=== PATIENT | female | born 1980 | race Caucasian/White ===

== ENCOUNTER 2025-01-15 20:24 | Inpatient (IN) ==
[2025-01-15] MEDS: fentaNYL citrate PF 100 MCG/2 ML VIAL IV PRN (20:29)
[2025-01-15] MEDS: fentaNYL citrate PF 100 MCG/2 ML VIAL ONE (20:29)
--- NOTE | 2025-01-15 20:40 | Emergency Department Note ---
Impression & Plan Left tibial fracture, Closed left fibular fracture ED Provider Note NAME: VERONICA BEAVERS AGE: 44 SEX: F : 1980 ARRIVES VIA: Ambulance INFORMANT: Patient, EMS ED PROVIDER(S): Raj Rodriguez DO CHIEF COMPLAINT: Leg injury HPI: The patient is a 44-year-old female who presented to the emergency department for an evaluation after an injury to her left leg. The patient fell when she was standing on the bed of a truck that was not moving. She landed onto her left leg. She was unable to bear weight. She arrived via ALS. She received fentanyl prior to arrival. There was no other reported injury. The patient denies having any back pain or head injury. ROS: See above HPI for pertinent positives & negatives. A total of 10 systems reviewed and were otherwise negative. PAST MEDICAL HISTORY: See Below PAST SURGICAL HISTORY: See Below FAMILY HISTORY: See Below SOCIAL HISTORY: See Below HOME MEDICATIONS: See Below ALLERGIES: See Below VITALS: See Below PHYSICAL EXAMINATION: GENERAL: The patient is awake and alert. The patient is very anxious and appears to be uncomfortable. EYES: The conjunctivae are clear. The pupils are round and reactive. EARS, NOSE, MOUTH AND THROAT: The nose is without any evidence of any deformity. NECK: The neck is nontender and supple. RESPIRATORY: Normal respiratory effort is noted there is no evidence of wheezing rhonchi or rales CARDIOVASCULAR: Regular rate and rhythm noted there no murmurs rubs or gallops normal S1 normal S2. GASTROINTESTINAL: The abdomen is soft. Abdomen is nontender. BACK: No midline tenderness or or step-off noted range of motion in flexion extension as well as rotation no signs of muscle spasm noted MUSCULOSKELETAL/EXTREMITIES: There is deformity noted to the left lower leg. Pulses are symmetric in both feet. Skin was warm and dry. There is no palpable tenderness over the left hip or the left ankle. SKIN: There is no obvious evidence of any rash. There are no petechiae, pallor or cyanosis noted. NEUROLOGIC: Patient is awake alert and oriented x3 MEDICAL DECISION MAKING: The patient is a 44-year-old female who presented to the emergency department after a fall. The patient fell off the back of a nonmoving truck. The patient injured her left leg. She appeared to have signs of deformity on physical exam. She was placed into a splint. Further laboratory and radiographic studies were obtained. I discussed the patient's condition with her. I discussed her condition with the on-call orthopedic physician as well as the on-call [facility] hospitalist. They agreed to evaluate the patient in the emergency department for further management and disposition. Patient was treated with multiple doses of IV pain medication. She was improved. Triage Nursing notes reviewed. Prior medical records reviewed Vital Signs: reviewed and remarkable for no significant abnormalities Differential diagnosis: Fracture, subluxation, dislocation, contusion, ligamentous injury, neurovascular, compartment syndrome, rhabdomyolysis, as well as other pathologies. ER treatment provided: See below Diagnostics interpreted by me: ECG: EKG was obtained in the emergency department. My interpretation is paced rhythm at 62 bpm. No PVCs were noted. No [place] beats were noted. Cardiac Monitoring: An order was placed for continuous cardiac monitoring. The monitor shows a rate of 60 bpm with sinus rhythm. Laboratory studies: As stated above and show below. Imaging studies: See below. Radiographic imaging was reviewed by myself Consultation(s): I discussed this case with Dr. Platt who is on-call for orthopedics. I discussed this case with Dr. Sosa [facility]. Past Med/Surg History Problem List (Updated 01/15/25 @ 23:51 by Raj Rodriguez DO) Closed left fibular fracture (Acute) Left tibial fracture (Acute) Medical History (Updated 01/15/25 @ 23:51 by Raj Rodriguez DO) Hypothyroid History of pacemaker Social History Smoking Status: Never smoker Preferred Language: Kenyan Feels Safe at Home: Yes Allergies Allergies Allergy/AdvReac Type Severity Reaction Status Date / Time No Known Allergies Allergy Unverified 01/15/25 21:13 Home Meds Home Medications Medication Instructions Recorded Confirmed aspirin 81 mg tablet,delayed 81 mg PO HS 01/15/25 01/15/25 release levothyroxine 125 mcg tablet 125 mcg PO QAM 01/15/25 01/15/25 (Synthroid) metoprolol succinate 25 mg 25 mg PO HS 01/15/25 01/15/25 tablet,extended release 24 hr spironolactone 100 mg tablet 100 mg PO BID 01/15/25 01/15/25 Results & Data (ED) Vital Signs Vital Signs - 24 hr 01/15/25 20:26 01/15/25 20:26 01/15/25 20:26 Temperature 36.6 C 36.6 C 36.6 C Temperature Source Oral Oral Pulse Rate 60 60 Pulse Rate [Apical] 60 Respiratory Rate 18 18 18 Respiratory Effort / Characteristics Non-Labored Non-Labored Respiratory Depth Normal Normal Respiratory Pattern Regular Regular Blood Pressure 145/83 H 145/83 H Blood Pressure [Right Arm] 145/83 H Blood Pressure Mean 103 Blood Pressure Mean [Right Arm] 103 Pulse Oximetry 100 100 100 Oxygen Delivery Method Room Air Room Air Room Air Oxygen Flow Rate 0 Sepsis Recent Fever Within 48 Hours No Sepsis New/Unexplained Change in Mental Status N/A Sepsis Action Taken by Nursing No Action Required 01/15/25 20:26 01/15/25 20:26 01/15/25 20:33 Temperature Temperature Source Pulse Rate 60 60 Pulse Rate [Apical] Respiratory Rate 18 18 Respiratory Effort / Characteristics Respiratory Depth Respiratory Pattern Blood Pressure 142/77 H Blood Pressure [Right Arm] Blood Pressure Mean 116 Blood Pressure Mean [Right Arm] Pulse Oximetry 100 100 99 Oxygen Delivery Method Room Air Room Air Room Air Oxygen Flow Rate Sepsis Recent Fever Within 48 Hours Sepsis New/Unexplained Change in Mental Status Sepsis Action Taken by Nursing 01/15/25 20:37 01/15/25 20:40 01/15/25 20:50 Temperature Temperature Source Pulse Rate 62 60 60 Pulse Rate [Apical] Respiratory Rate 12 14 Respiratory Effort / Characteristics Respiratory Depth Respiratory Pattern Blood Pressure 149/88 H 146/86 H Blood Pressure [Right Arm] Blood Pressure Mean 120 118 Blood Pressure Mean [Right Arm] Pulse Oximetry 99 93 Oxygen Delivery Method Room Air Room Air Oxygen Flow Rate Sepsis Recent Fever Within 48 Hours Sepsis New/Unexplained Change in Mental Status Sepsis Action Taken by Nursing 01/15/25 21:00 01/15/25 21:15 01/15/25 22:00 Temperature 36.7 C 36.7 C Temperature Source Oral Oral Pulse Rate 60 Pulse Rate [Apical] 60 60 Respiratory Rate 16 14 16 Respiratory Effort / Characteristics Non-Labored Non-Labored Respiratory Depth Normal Normal Respiratory Pattern Regular Regular Blood Pressure 124/70 Blood Pressure [Right Arm] 116/73 107/66 Blood Pressure Mean 82 Blood Pressure Mean [Right Arm] 87 79 Pulse Oximetry 98 97 96 Oxygen Delivery Method Room Air Room Air Room Air Oxygen Flow Rate Sepsis Recent Fever Within 48 Hours Sepsis New/Unexplained Change in Mental Status Sepsis Action Taken by Nursing 01/15/25 23:02 Temperature 36.8 C Temperature Source Oral Pulse Rate Pulse Rate [Apical] 60 Respiratory Rate 22 Respiratory Effort / Characteristics Respiratory Depth Respiratory Pattern Blood Pressure Blood Pressure [Right Arm] 118/60 Blood Pressure Mean Blood Pressure Mean [Right Arm] 79 Pulse Oximetry 95 Oxygen Delivery Method Room Air Oxygen Flow Rate Sepsis Recent Fever Within 48 Hours Sepsis New/Unexplained Change in Mental Status Sepsis Action Taken by [facility] Medications Current Medication List: was personally reviewed by me Laboratory Data Attestation: I reviewed the patient's lab results. 01/15/25 20:30 01/15/25 20:30 Lab Results 01/15/25 Range/Units 20:30 WBC 9.94 (4.8-10.8) K/ul RBC 4.25 (4.20-5.40) M/uL Hgb 12.8 (12.0-16.0) g/dl Hct 37.7 (37.0-47.0) % MCV 88.7 (80.0-100.0) fL MCH 30.1 (25.0-34.0) pg MCHC 34.0 (32.0-36.0) g/dL RDW Std Deviation 42.8 (36.4-46.3) fL RDW Coeff of Linda 13.1 (11.5-14.5) % Plt Count 251 (130-400) K/uL MPV 9.4 (9.4-12.4) fL Immature Gran % (Auto) 0.2 % Neut % (Auto) 64.3 % Lymph % (Auto) 20.1 % [place] % (Auto) 11.6 % Eos % (Auto) 3.3 % Baso % (Auto) 0.5 % Neut # (Auto) 6.39 (1.40-6.50) K/uL Lymph # (Auto) 2.00 (1.20-3.40) K/uL [place] # (Auto) 1.15 H (0.11-0.59) K/uL Eos # (Auto) 0.33 (0.00-0.50) K/uL Baso # (Auto) 0.05 (0.00-0.20) K/uL Immature Gran # (Auto) 0.02 (0.01-0.20) K/uL PT 10.3 (9.0-12.0) Seconds INR 0.9 (0.9-1.1) Sodium 136 (136-145) mmol/L Potassium 4.0 (3.5-5.1) mmol/L Chloride 103 (98-107) mmol/L Carbon Dioxide 29 (21-32) mmol/L Anion Gap 4 (3-11) BUN 14 (6-23) mg/dl Creatinine 0.60 (0.6-1.2) mg/dl Est Cr Clr Drug Dosing Not Reportable eGFR 114.86 BUN/Creatinine Ratio 23.3 H (10-20) Glucose 118 H (70-99(Fasting)) mg/dl Calcium 9.4 (8.6-10.3) mg/dl Magnesium 1.8 (1.7-2.4) mg/dl Total Bilirubin 0.2 (0.2-1.0) mg/dl AST 22 (13-39) U/L ALT 15 (7-52) U/L Alkaline Phosphatase 43 (34-104) U/L Total Protein 7.3 (6.0-8.3) gm/dl Albumin 4.5 (3.4-5.0) gm/dl Globulin 2.8 (2.5-4.0) gm/dl Albumin/Globulin Ratio 1.6 (0.9-2) Lipase 52 (11-82) U/L HCG, Qual Negative (Negative) Administered Medications Sodium Chloride (Nss) 1,000 mls @ 50 mls/hr IV .Q20H ONE Stop: 01/16/25 19:59 Last Admin: 01/15/25 23:14 Dose: 50 mls/hr Documented By: CTK Morphine Sulfate (Morphine Sulfate 2 Mg/Ml Carp) 2 mg IV Q3H PRN PRN Reason: Pain Stop: 01/29/25 22:59 Last Admin: 01/15/25 23:36 Dose: 2 mg Documented By: CTK Discontinued Medications Fentanyl Citrate (Fentanyl Citrate Pf 100 Mcg/2 Ml Vial) Confirm Administered Dose 100 mcg .ROUTE .STK-MED ONE Stop: 01/15/25 20:27 Last Admin: 01/15/25 20:29 Dose: Not Given Documented By: RALEIGH Fentanyl Citrate (Fentanyl Citrate Pf 100 Mcg/2 Ml Vial) 100 mcg IV Q15M PRN PRN Reason: Pain Stop: 01/29/25 20:24 Last Admin: 01/15/25 21:00 Dose: 100 mcg Documented By: Admin: 01/15/25 20:29 Dose: 100 mcg Documented By: RALEIGH Hydromorphone HCl (Hydromorphone Inj 0.5 Mg/0.5 Ml Syr) 0.5 mg IV Q15M PRN PRN Reason: Pain Stop: 01/29/25 21:32 Last Admin: 01/15/25 22:59 Dose: 0.5 mg Documented By: Admin: 01/15/25 21:41 Dose: 0.5 mg Documented By: RALEIGH Ondansetron HCl (Ondansetron Inj 2 Mg/Ml 2 Ml Vial) 4 mg IV NOW STA Stop: 01/15/25 21:03 Last Admin: 01/15/25 21:08 Dose: 4 mg Documented By: RALEIGH Imaging Data Attestation: I personally reviewed and interpreted this imaging study as follows: My Impression: 1 view chest x-ray was obtained in the emergency department. My interpretation is no free air or definite infiltrate, final report pending. X-ray of the left tib-fib was obtained in the emergency department. My interpretation is spiral fracture of the distal tibial shaft with a spiral fracture of the proximal fibular shaft, final report pending. Discharge Plan Visit Data Chief Complaint: Trauma Stated Complaint: Tib/Fib Fracture, Fall ED Provider: Raj Rodriguez Discharge Problem: Left tibial fracture, Closed left fibular fracture Patient Disposition: Being Evaluated by Hospitalist Forms Stand Alone Forms: My [facility] Prescriptions Prescriptions: No Action aspirin [Aspirin Low-Strength] 81 mg Tablet,Delayed Release (Dr/Ec) 81 mg PO HS levothyroxine [Synthroid] 125 mcg Tablet 125 mcg PO QAM spironolactone 100 mg Tablet 100 mg PO BID metoprolol succinate 25 mg Tablet Extended Release 24 Hr 25 mg PO HS Referrals Referrals: PCP,NO [Physician] - Discharge Problem: Left tibial fracture Qualifiers: Encounter type: initial encounter Tibia location: shaft Fracture type: closed F racture morphology: spiral Fracture alignment: displaced Qualified Code(s): S 82.242A - Displaced spiral fracture of shaft of left tibia, initial encounter for closed fracture Closed left fibular fracture Qualifiers: Encounter type: initial encounter Fibula location: proximal Fracture morphology: unspecified fracture morphology Qualified Code(s): S82.832A - Other fracture of upper and lower end of left fibula, initial encounter for closed fracture
[2025-01-15 20:45] LABS: Basophils # (auto) 0.05 K/uL (0.00-0.20); Basophils % (auto) 0.5 %; Eosinophils # (auto) 0.33 K/uL (0.00-0.50); Eosinophils % (auto) 3.3 %; Hematocrit (blood only) 37.7 % (37.0-47.0); Hemoglobin 12.8 g/dl (12.0-16.0); Immature Granulocytes # (auto) 0.02 K/uL (0.01-0.20); Immature Granulocytes % (auto) 0.2 %; Lymphocytes % (auto) 20.1 %; Mean Corpuscular Hemoglobin 30.1 pg (25.0-34.0); Mean Corpuscular Volume 88.7 fL (80.0-100.0); Mean Platelet Volume 9.4 fL (9.4-12.4); Monocytes # (auto) 1.15 K/uL (0.11-0.59); Monocytes % (auto) 11.6 %; Neutrophils # (auto) 6.39 K/uL (1.40-6.50); Neutrophils % (auto) 64.3 %; Platelet Count 251 K/uL (130-400); RDW Coefficient of Variation 13.1 % (11.5-14.5); RDW Standard Deviation 42.8 fL (36.4-46.3); Red Blood Count 4.25 M/uL (4.20-5.40); White Blood Count 9.94 K/ul (4.8-10.8)
[2025-01-15 21:00] LABS: Alanine Aminotransferase 15 U/L (7-52); Albumin Globulin Ratio 1.6 (0.9-2); Albumin Level 4.5 gm/dl (3.4-5.0); Alkaline Phosphatase 43 U/L (34-104); Anion Gap 4 (3-11); Aspartate Aminotransferase 22 U/L (13-39); BUN Creatinine Ratio 23.3 (10-20); Bilirubin,Total 0.2 mg/dl (0.2-1.0); Blood Urea Nitrogen 14 mg/dl (6-23); Calcium 9.4 mg/dl (8.6-10.3); Carbon Dioxide 29 mmol/L (21-32); Chloride 103 mmol/L (98-107); Globulin 2.8 gm/dl (2.5-4.0); Glucose 118 mg/dl (70-99(Fasting)); Lipase 52 U/L (11-82); Sodium 136 mmol/L (136-145); Total Protein 7.3 gm/dl (6.0-8.3)
[2025-01-15] MEDS: ONDANSETRON INJ 2 MG/ML 2 ML VIAL IV STA (21:08)
[2025-01-15] MEDS: HYDROmorphone INJ 0.5 MG/0.5 ML SYR IV PRN (21:41)
--- NOTE | 2025-01-15 22:33 | Orthopedic Consultation ---
Date of Consultation January 15, 2025 Assessment & Plan (1) Left tibial fracture: Pain is well-controlled. No significant pain with active movement. X-rays reviewed. Options discussed. Discussed operative and nonoperative management. I recommend surgery. She could have this treated as an outpatient back home. She wishes to have it done here. Informed consent was obtained. We reviewed risk benefits rehab and recovery. Mechanical devices for DVT prophylaxis. Nonweightbearing on the left leg. Check a CT scan to ensure that there is no extension of the fracture to the ankle joint. Otherwise would plan on a standard anterograde intramedullary nail. History of Present Illness History of Present Illness Janeth is 44. She is from the [place] area. Here visiting family. A misstep getting out of her truck twisted the left leg felt a crack with pain. Unable to bear weight. Came to the ER where she was evaluated and diagnosed with a fracture. She denies other injury. She has been splinted. She reports no cuts scrapes or open wounds. Denies tingling or numbness. Allergies Allergy/AdvReac Type Severity Reaction Status Date / Time No Known Allergies Allergy Unverified 01/15/25 21:13 Home Medications Medication Instructions Recorded Confirmed Type aspirin 81 mg tablet,delayed 81 mg PO HS 01/15/25 01/15/25 History release levothyroxine 125 mcg tablet 125 mcg PO QAM 01/15/25 01/15/25 History (Synthroid) metoprolol succinate 25 mg 25 mg PO HS 01/15/25 01/15/25 History tablet,extended release 24 hr spironolactone 100 mg tablet 100 mg PO BID 01/15/25 01/15/25 History Patient History Medical History History of pacemaker Social History Smoking Status: Never smoker Preferred Language: Serbian Feels Safe at Home: Yes Review of Systems Review of Systems: She has had multiple heart surgeries and 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 She is not allergic to anything. She takes an antidepressant aspirin levothyroxine metoprolol and spironolactone. No history of bleeding or blood clots. She has not had staph or MRSA infections. Physical Exam Physical Exam: Her thigh and knee are nontender. Her leg is in a splint. She can wiggle her toes and has 5 out of 5 greater and lesser toe flexion and extension strength. Sensation is intact in the toes and the dorsal and plantar forefoot. DP pulses 1+. Capillary refill less than 2 seconds foot is warm. Results & Data Vital Signs (Past 12 Hours) Vital Signs Temp Pulse Pulse Resp BP BP Pulse Ox 01/15/25 22:00 36.7 C 60 16 107/66 96 01/15/25 21:15 36.7 C 60 14 116/73 97 01/15/25 21:00 60 16 124/70 98 01/15/25 20:50 60 14 146/86 H 93 01/15/25 20:40 60 12 149/88 H 99 01/15/25 20:37 62 01/15/25 20:33 60 18 142/77 H 99 01/15/25 20:26 60 18 100 01/15/25 20:26 100 01/15/25 20:26 36.6 C 60 18 145/83 H 100 01/15/25 20:26 36.6 C 60 18 145/83 H 100 01/15/25 20:26 36.6 C 60 18 145/83 H 100 O2 Del Method O2 Flow Rate 01/15/25 22:00 Room Air 01/15/25 21:15 Room Air 01/15/25 21:00 Room Air 01/15/25 20:50 Room Air 01/15/25 20:40 Room Air 01/15/25 20:37 01/15/25 20:33 Room Air 01/15/25 20:26 Room Air 01/15/25 20:26 Room Air 01/15/25 20:26 Room Air 01/15/25 20:26 Room Air 01/15/25 20:26 Room Air 0 Laboratory Results Laboratory Results WBC 9.94 K/ul (4.8-10.8) 01/15/25 20:30 RBC 4.25 M/uL (4.20-5.40) 01/15/25 20:30 Hgb 12.8 g/dl (12.0-16.0) 01/15/25 20:30 Hct 37.7 % (37.0-47.0) 01/15/25 20:30 MCV 88.7 fL (80.0-100.0) 01/15/25 20: MCH 30.1 pg (25.0-34.0) 01/15/25: MCHC 34.0 g/dL (32.0-36.0) 01/15/25 RDW Std Deviation 42.8 fL (36.4-46.3) 01/15/25 RDW Coeff of Linda 13.1 % (11.5-14.5) 01/15/25 Plt Count 251 K/uL (130-400) 01/15/25 MPV 9.4 fL (9.4-12.4) 01/15/25 Immature Gran % (Auto) 0.2 % 01/15/25 Neut % (Auto) 64.3 % 01/15/25: Lymph % (Auto) 20.1 % 01/15/25: [place] % (Auto) 11.6 % 01/15/25: Eos % (Auto) 3.3 % 01/15/25: Baso % (Auto) 0.5 % 01/15/25: Neut # (Auto) 6.39 K/uL (1.40-6.50) 01/15/25: Lymph # (Auto) 2.00 K/uL (1.20-3.40) 01/15/25 [place] # (Auto) 1.15 K/uL (0.11-0.59) H 01/15/25: Eos # (Auto) 0.33 K/uL (0.00-0.50) 01/15/25: Baso # (Auto) 0.05 K/uL (0.00-0.20) 01/15/25 Immature Gran # (Auto) 0.02 K/uL (0.01-0.20) 01/15/25 Sodium 136 mmol/L (136-145) 01/15/25 Potassium 4.0 mmol/L (3.5-5.1) 01/15/25 Chloride 103 mmol/L (98-107) 01/15/25: Carbon Dioxide 29 mmol/L (21-32) 01/15/25 20:30 Anion Gap 4 (3-11) 01/15/25 20:30 BUN 14 mg/dl (6-23) 01/15/25 20: Creatinine 0.60 mg/dl (0.6-1.2) 01/15/25 20: Est Cr Clr Drug Dosing Not Reportable 01/15/25 20:30 eGFR 114.86 01/15/25 20:30 BUN/Creatinine Ratio 23.3 (10-20) H 01/15/25 20:30 Glucose 118 mg/dl (70-99(Fasting)) H 01/15/25 20:30 Calcium 9.4 mg/dl (8.6-10.3) 01/15/25 20: Total Bilirubin 0.2 mg/dl (0.2-1.0) 01/15/25 20:30 AST 22 U/L (13-39) 01/15/25 20:30 ALT 15 U/L (7-52) 01/15/25 20:30 Alkaline Phosphatase 43 U/L (34-104) 01/15/25 20:30 Total Protein 7.3 gm/dl (6.0-8.3) 01/15/25 20:30 Albumin 4.5 gm/dl (3.4-5.0) 01/15/25:30 Globulin 2.8 gm/dl (2.5-4.0) 01/15/25 20:30 Albumin/Globulin Ratio 1.6 (0.9-2) 01/15/25 20:30 Lipase 52 U/L (11-82) 01/15/25 20:30
--- NOTE | 2025-01-15 22:58 | History & Physical Report ---
Date of Service January 15, 2025 Assessment & Plan (1) Left tibial fracture: Plan: Traumatic left tibial/fibula fracture secondary to fall chronic CHF (EF 60%, TTE 2024 as per patient), history ICD, patient euvolemic, stable heart disease after recent follow-up with Brittany Gutiérrez senior sql server database developer last month as per patient. hypertension, BP on the lower side tetralogy of Fallot status post surgery AR status post aortic root/bioprosthetic AVR hypothyroidism Hyperglycemia rule out DM Admit to [facility] consult Re: left tibia/fibula fracture Patient already seen at the ER by Dr. Platt. Surgery contemplated in AM. Acceptable risk for cardiac complications resulting from prospective procedure Revised Cardiac Risk Index (RCRI): 1. High-risk type of surgery (examples include vascular and any open intraperitoneal or intrathoracic procedures). No 2. History of ischemic heart disease (history of myocardial infarction or positive exercise test, current compliant of chest pain considered to be secondary to myocardial ischemia, use of nitrate therapy, or ECG with pathological Q waves; do not count prior coronary revascularization procedure unless one of the other criteria for ischemic heart disease is present). No 3. History of heart failure. Yes 4. History of cerebrovascular disease. No 5. Diabetes mellitus requiring treatment with insulin. No 6. Preoperative serum creatinine >2.0. No Pt has revised cardiac index score of 1 points. (Class I Risk.) 6.3 % 30-day risk of , [place], or cardiac arrest. Acceptable risk for cardiac complications if surgery recommended by Orthopedics and patient/family agreeable to attendant procedural benefits and risks.. Resume home aspirin and home diuretic postop. Check hemoglobin A1c DVT prophylaxis. SCDs Full code Text document was generated using [employer] voice recognition software. It may contain grammatical or spelling errors. Kindly contact undersigned for clarification of any documentation item in question. History of Present Illness Chief Complaint: Fall, left ankle pain Primary Care Provider: CASS TESFAYE History obtained from patient, family, and records. Medical history significant for chronic CHF (EF 60%, TTE 2024 as per patient), history ICD, hypertension, tetralogy of Fallot status post surgery, AR status post aortic root/bioprosthetic AVR, hypothyroidism. Patient is a resident of [place] visiting family this weekend. She fell off her truck while unloading some packages. Patient landed on her left leg. Achy left ankle pain. No head trauma, no chest pain, no SOB. Medical History as above Surgical History : ICD, TOF repair, bioprosthetic AVR Family History : Hypertension Personal/Social history : Non-smoker, occasional EtOH intake, occupational therapist Allergies Allergy/AdvReac Type Severity Reaction Status Date / Time No Known Allergies Allergy Unverified 01/15/25 21:13 Home Medications Medication Instructions Recorded Confirmed Type aspirin 81 mg tablet,delayed 81 mg PO HS 01/15/25 01/15/25 History release levothyroxine 125 mcg tablet 125 mcg PO QAM 01/15/25 01/15/25 History (Synthroid) metoprolol succinate 25 mg 25 mg PO HS 01/15/25 01/15/25 History tablet,extended release 24 hr spironolactone 100 mg tablet 100 mg PO BID 01/15/25 01/15/25 History Past Med/Surg History Problem List (Updated 01/16/25 @ 07:53 by William Hamilton MD) Encounter for pre-operative examination Closed left fibular fracture (Acute) Left tibial fracture (Acute) Medical History (Updated 01/16/25 @ 07:53 by William Hamilton MD) Tetralogy of Fallot Anemia AICD (automatic cardioverter/defibrillator) present Hypothyroid Surgical History (Updated 01/16/25 @ 07:53 by William Hamilton MD) Hx of tetralogy of Fallot repair History of coronary artery bypass graft x 1 Hx of aortic valve replacement History of pacemaker History of automatic internal cardiac defibrillator (AICD) Social History Smoking Status: Never smoker Second Hand Exposure: No; Do You Dip or Chew Tobacco: No; Tobacco Cessation Education Requested by Patient: No Hx Alcohol Use: No Hx Substance Use: No Preferred Language: Burkinan Communication Ability: Effective Rn Diabetes Educator Required: No Beliefs That Will Affect Care: None Current Living Situation: Spouse Other Information That Helps Us Care for You: No Feels Safe at Home: Yes Safety Concerns: Feels Safe At This Time Assistive Devices: None Review of Systems Review of Systems: As per HPI, all other systems reviewed and negative Physical Exam Physical Exam: GENERAL: Comfortable, pleasant, no respiratory distress SKIN: Normal color, warm HEENT: [place] palpebral conjunctivae, no ptosis, moist buccal mucosa NECK : Supple, no tenderness CHEST : CTA, no tenderness HEART : RRR, systolic murmur ABDOMEN: no distention, nontender EXTREMITIES : No LE swelling/tenderness, palpable pulses, LLE splint NEUROLOGIC : Coherent, no facial asymmetry, no other gross focality Results & Data Results & Data Vital Signs (Past 12 Hours) Vital Signs Temp Pulse Pulse Resp BP BP Pulse Ox 01/15/25 22:00 36.7 C 60 16 107/66 96 01/15/25 21:15 36.7 C 60 14 116/73 97 01/15/25 21:00 60 16 124/70 98 01/15/25 20:50 60 14 146/86 H 93 01/15/25 20:40 60 12 149/88 H 99 01/15/25 20:37 62 01/15/25 20:33 60 18 142/77 H 99 01/15/25 20:26 60 18 100 01/15/25 20:26 100 01/15/25 20:26 36.6 C 60 18 145/83 H 100 01/15/25 20:26 36.6 C 60 18 145/83 H 100 01/15/25 20:26 36.6 C 60 18 145/83 H 100 O2 Del Method O2 Flow Rate 01/15/25 22:00 Room Air 01/15/25 21:15 Room Air 01/15/25 21:00 Room Air 01/15/25 20:50 Room Air 01/15/25 20:40 Room Air 01/15/25 20:37 01/15/25 20:33 Room Air 01/15/25 20:26 Room Air 01/15/25 20:26 Room Air 01/15/25 20:26 Room Air 01/15/25 20:26 Room Air 01/15/25 20:26 Room Air 0 Laboratory Results Laboratory Results WBC 9.94 K/ul (4.8-10.8) 01/15/25 20:30 RBC 4.25 M/uL (4.20-5.40) 01/15/25 20:30 Hgb 12.8 g/dl (12.0-16.0) 01/15/25 20:30 Hct 37.7 % (37.0-47.0) 01/15/25 20:30 MCV 88.7 fL (80.0-100.0) 01/15/25 20: MCH 30.1 pg (25.0-34.0) 01/15/25 MCHC 34.0 g/dL (32.0-36.0) 01/15/25 RDW Std Deviation 42.8 fL (36.4-46.3) 01/15/25 RDW Coeff of Linda 13.1 % (11.5-14.5) 01/15/25: Plt Count 251 K/uL (130-400) 01/15/25: MPV 9.4 fL (9.4-12.4) 01/15/25: Immature Gran % (Auto) 0.2 % 01/15/25: Neut % (Auto) 64.3 % 01/15/25: Lymph % (Auto) 20.1 % 01/15/25: [place] % (Auto) 11.6 % 01/15/25: Eos % (Auto) 3.3 % 01/15/25 Baso % (Auto) 0.5 % 01/15/25: Neut # (Auto) 6.39 K/uL (1.40-6.50) 01/15/25 Lymph # (Auto) 2.00 K/uL (1.20-3.40) 01/15/25 20: [place] # (Auto) 1.15 K/uL (0.11-0.59) H 01/15/25: Eos # (Auto) 0.33 K/uL (0.00-0.50) 01/15/25: Baso # (Auto) 0.05 K/uL (0.00-0.20) 01/15/25: Immature Gran # (Auto) 0.02 K/uL (0.01-0.20) 01/15/25 20:30 Sodium 136 mmol/L (136-145) 01/15/25: Potassium 4.0 mmol/L (3.5-5.1) 01/15/25: Chloride 103 mmol/L (98-107) 02/22/25 20:30 Carbon Dioxide 29 mmol/L (21-32) 01/15/25 20:30 Anion Gap 4 (3-11) 01/15/25 20:30 BUN 14 mg/dl (6-23) 01/15/25 20:30 Creatinine 0.60 mg/dl (0.6-1.2) 01/15/25 20:30 Est Cr Clr Drug Dosing Not Reportable 01/15/25 20: eGFR 114.86 01/15/25 20: BUN/Creatinine Ratio 23.3 (10-20) H 01/15/25 20:30 Glucose 118 mg/dl (70-99(Fasting)) H 01/15/25 20:30 Calcium 9.4 mg/dl (8.6-10.3) 01/15/25 20: Total Bilirubin 0.2 mg/dl (0.2-1.0) 01/15/25 20:30 AST 22 U/L (13-39) 01/15/25 20: ALT 15 U/L (7-52) 01/15/25 20: Alkaline Phosphatase 43 U/L (34-104) 01/15/25 20:30 Total Protein 7.3 gm/dl (6.0-8.3) 01/15/25 20: Albumin 4.5 gm/dl (3.4-5.0) 01/15/25:30 Globulin 2.8 gm/dl (2.5-4.0) 01/15/25 20:30 Albumin/Globulin Ratio 1.6 (0.9-2) 01/15/25: Lipase 52 U/L (11-82) 01/15/25 20:30 Left tibia-fibula x-ray: 1. Displaced oblique fracture involving the distal tibial diaphysis with approximately 8 mm foreshortening of the fracture fragments in approximately 25-50% posterior displacement of the distal fracture fragment. There is approximately the 10-15 angulation, apex anterior in the lateral projection. 2. There is an oblique fracture involving the proximal fibular diaphysis with approximately 25% anterior and lateral displacement of the distal fracture fragment. There is approximately 1 cm foreshortening of the fracture fragments. Diagnostic Findings Chest x-ray as per my interpretation marked cardiomegaly, atelectasis, pacemaker EKG as per my interpretation : Rate 125, paced rhythm (1) Left tibial fracture Encounter type: initial encounter Fracture alignment: displaced Fracture morphology: spiral Fracture type: closed Tibia location: shaft Qualified Code(s): S82.242A - Displaced spiral fracture of shaft of left tibia, initial encounter for closed fracture
[2025-01-15] MEDS ORDERED: PROMETHAZINE 6.25 MG/50.25 ML BAG IV PRN (23:00)
[2025-01-15 23:06] LABS: Pregnancy Test, Serum Negative (Negative)
[2025-01-15 23:14] LABS: Magnesium 1.8 mg/dl (1.7-2.4)
[2025-01-15] MEDS: SODIUM CHLORIDE 0.9% 1,000 ML IV ONE (23:14)
[2025-01-15 23:15] LABS: INR 0.9 (0.9-1.1); Prothrombin Time 10.3 Seconds (9.0-12.0)
[2025-01-15] MEDS: MoRPHine SULFATE 2 MG/ML CARP IV PRN (23:36)
--- NOTE | 2025-01-16 00:38 | XRay Report ---
Exam(s): XR LEFT TIB/FIB, 2 views EXAM: XR Left Tibia and Fibula, 2 Views CLINICAL HISTORY: fall. TECHNIQUE: Frontal and lateral views of the left tibia and fibula. COMPARISON: No relevant prior studies available. FINDINGS: Bones/joints: Displaced oblique fracture involving the distal tibial diaphysis with approximately 8 mm foreshortening of the fracture fragments in approximately 25-50% posterior displacement of the distal fracture fragment. There is approximately the 10-15 angulation, apex anterior in the lateral projection. There is an oblique fracture involving the proximal fibular diaphysis with approximately 25% anterior and lateral displacement of the distal fracture fragment. There is approximately 1 cm foreshortening of the fracture fragments. The knee joint and ankle joints are maintained. No dislocation. Soft tissues: Diffuse soft tissue fullness. No radiopaque foreign body or subcutaneous emphysema. IMPRESSION: 1. Displaced oblique fracture involving the distal tibial diaphysis with approximately 8 mm foreshortening of the fracture fragments in approximately 25-50% posterior displacement of the distal fracture fragment. There is approximately the 10-15 angulation, apex anterior in the lateral projection. 2. There is an oblique fracture involving the proximal fibular diaphysis with approximately 25% anterior and lateral displacement of the distal fracture fragment. There is approximately 1 cm foreshortening of the fracture fragments. Electronically signed by: Pavel Richardson MD 01/16/25 00:37 AM
--- NOTE | 2025-01-16 00:40 | XRay Report ---
Exam(s): XR CXR 1 VIEW EXAM: XR Chest, 1 View CLINICAL HISTORY: fall. TECHNIQUE: Frontal view of the chest. COMPARISON: No relevant prior studies available. FINDINGS: Lungs: Perihilar streaky opacities. No focal airspace consolidation. The pulmonary vasculature demonstrates no evidence for florid CHF. Pleural space: Unremarkable. No pneumothorax. No large pleural effusion. Heart: Cardiomegaly of unknown chronicity with postsurgical changes consistent with prior presumed aortic valve replacement. Mediastinum: The mediastinal contours are unremarkable, accounting for obliquity. No definite tracheal deviation. Bones/joints: Unremarkable. No acute fracture. Tubes, lines and devices: Right subclavian biventricular defibrillator pacer. IMPRESSION: 1. No radiographic evidence for significant acute traumatic injury involving the chest/thorax, accounting for limitations with obliquity. 2. Perihilar streaky opacities are presumed subsegmental atelectasis. Incidental cardiomegaly with evidence of valve replacement and defibrillator pacer. Electronically signed by: Pavel Richardson MD 01/16/25 00:39 AM
[2025-01-16] MEDS: MAGNESIUM SULFATE / D5W 1 GM/100 ML BAG IV ONE (00:46)
--- NOTE | 2025-01-16 01:27 | CT Scan Report ---
Exam(s): CT LEFT ANKLE Without Contrast EXAM: CT Left Lower Extremity Without Intravenous Contrast, Ankle CLINICAL HISTORY: pain. TECHNIQUE: Axial computed tomography images of the left ankle without intravenous contrast. CTDI is 24.91 mGy and DLP is 590.17 mGy-cm. Automated exposure control was utilized for the study. A dose lowering technique was utilized adhering to the principles of ALARA. 3D reconstructed images were created and reviewed. COMPARISON: Plain radiographs performed earlier FINDINGS: Bones/joints: The oblique fracture involving the distal tibial diaphysis is again noted with approximately 20-50% posterior displacement of the distal fracture fragment. There is a proximally 1 cm foreshortening of the fracture fragments. The distal fibula, the talus and the calcaneus are intact. Incidental remote traumatic injury involving the navicular bone with well-corticated heterotopic calcification. No dislocation. Soft tissues: Hyperdense soft tissue contusive swelling about the fracture. No radiopaque foreign body or subcutaneous emphysema. IMPRESSION: 1. The oblique fracture involving the distal tibial diaphysis is again noted with approximately 20-50% posterior displacement of the distal fracture fragment. There is a proximally 1 cm foreshortening of the fracture fragments. The proximal fibular fracture noted on the plain radiographs is not included on this examination. 2. Hyperdense soft tissue contusive swelling about the fracture. No radiopaque foreign body or subcutaneous emphysema. Electronically signed by: Pavel Richardson MD 01/16/25 01:26 AM
[2025-01-16] MEDS: oxyCODONE HCL IR 5 MG TAB (IMMEDIATE RELEASE) PO PRN ×2 (01:36→18:07)
[2025-01-16] MEDS: KETOROLAC TROMETHAMINE 15 MG/ML VIAL IV ONE (03:53)
[2025-01-16 06:13] LABS: Basophils # (auto) 0.03 K/uL (0.00-0.20); Basophils % (auto) 0.3 %; Eosinophils # (auto) 0.05 K/uL (0.00-0.50); Eosinophils % (auto) 0.4 %; Hematocrit (blood only) 33.1 % (37.0-47.0); Hemoglobin 11.1 g/dl (12.0-16.0); Immature Granulocytes # (auto) 0.03 K/uL (0.01-0.20); Immature Granulocytes % (auto) 0.3 %; Lymphocytes % (auto) 11.6 %; Mean Corpuscular Hemoglobin 29.7 pg (25.0-34.0); Mean Corpuscular Hgb Conc 33.5 g/dL (32.0-36.0); Mean Corpuscular Volume 88.5 fL (80.0-100.0); Mean Platelet Volume 9.4 fL (9.4-12.4); Monocytes # (auto) 1.24 K/uL (0.11-0.59); Monocytes % (auto) 11.1 %; Neutrophils # (auto) 8.54 K/uL (1.40-6.50); Neutrophils % (auto) 76.3 %; Platelet Count 218 K/uL (130-400); RDW Coefficient of Variation 13.2 % (11.5-14.5); RDW Standard Deviation 42.7 fL (36.4-46.3); Red Blood Count 3.74 M/uL (4.20-5.40); White Blood Count 11.19 K/ul (4.8-10.8)
[2025-01-16] MEDS: LEVOTHYROXINE SODIUM 125 MCG TABLET PO SCH (06:29)
[2025-01-16] MEDS ORDERED: ROCURONIUM BROMIDE 10 MG/ML 5 ML VIAL IV ONE (07:18)
[2025-01-16] MEDS ORDERED: fentaNYL citrate PF 100 MCG/2 ML VIAL ONE (07:18)
[2025-01-16] MEDS ORDERED: ONDANSETRON INJ 2 MG/ML 2 ML VIAL ONE (07:18)
[2025-01-16] MEDS ORDERED: SUGAMMADEX SODIUM 200 MG/2 ML VIAL IV ONE (07:18)
[2025-01-16] MEDS ORDERED: MIDAZOLAM HCL 1 MG/ML 2ML VIAL ONE (07:18)
[2025-01-16] MEDS ORDERED: PROPOFOL IV EMULSION 10 MG/ML 20 ML VIAL IV ONE (07:18)
[2025-01-16] MEDS ORDERED: DEXAMETHASONE SOD INJ 4 MG/ML VIAL ONE (07:18)
[2025-01-16] MEDS ORDERED: ETOMIDATE 2 MG/ML 20 ML VIAL IV ONE (07:36)
--- NOTE | 2025-01-16 07:45 | History & Physical Bridge Note ---
Date of Service January 16, 2025 History & Physical Bridge Note I have examined the patient, reviewed the History & Physical and in the interval since the performance of the History & Physical I have noted the following changes of clinical significance: no changes noted
--- NOTE | 2025-01-16 07:53 | Anesthesiology Consultation ---
Date of Service January 16, 2025 Assessment & Plan (1) Encounter for pre-operative examination: Chart Review Chart Review: Acceptable Risk for Surgery History Surgery Operation Date: 01/16/25 07:30 Proposed Procedures p Intramedullary Nail Tibia - Aniceto Platt MD Height/Weight Height: 5 ft 1 in Weight: 66.1 kg Allergies Allergy/AdvReac Type Severity Reaction Status Date / Time No Known Allergies Allergy Unverified 01/15/25 21:13 Medications Home Medications Medication Instructions Recorded Confirmed Last Taken aspirin 81 mg tablet,delayed 81 mg PO HS 01/15/25 01/15/25 01/14/25 release levothyroxine 125 mcg tablet 125 mcg PO QAM 01/15/25 01/15/25 01/15/25 (Synthroid) metoprolol succinate 25 mg 25 mg PO HS 01/15/25 01/15/25 01/14/25 tablet,extended release 24 hr spironolactone 100 mg tablet 100 mg PO BID 01/15/25 01/15/25 01/15/25 AM Active Medications Generic Name Dose Route Start Last Admin Trade Name Freq PRN Reason Stop Dose Admin Sodium Chloride 1,000 mls @ 50 mls/hr 01/16/25 00:00 01/15/25 23:14 Nss IV 01/16/25 19:59 50 mls/hr .Q20H ONE Administration Levothyroxine Sodium 125 mcg 01/16/25 06:30 01/16/25 06:29 Levothyroxine Sodium 125 Mcg Tablet PO 02/15/25 06:29 125 mcg DAILYBB LIZZY Administration Oxycodone HCl 5 mg 01/15/25 23:00 01/16/25 01:36 Oxycodone Hcl Ir 5 Mg Tab (Immediate Release) PO 01/29/25 22:59 5 mg Q4H PRN Administration Pain NPO Date Last Intake of Fluids: 01/15/25 Time Last Intake of Fluids: 12:00 Last Intake of Fluids Comment: Took oxycodone with a sip of water at 12.15 am Date Last Intake of Solids: 01/15/25 Past Medical History Medical History (Updated 01/16/25 @ 07:53 by William Hamilton MD) Tetralogy of Fallot Anemia AICD (automatic cardioverter/defibrillator) present Hypothyroid Past Surgical History Surgical History (Updated 01/16/25 @ 07:53 by William Hamilton MD) Hx of tetralogy of Fallot repair History of coronary artery bypass graft x 1 Hx of aortic valve replacement History of pacemaker History of automatic internal cardiac defibrillator (AICD) Social History Smoking Status: Never smoker Do You Dip or Chew Tobacco: No Hx Alcohol Use: No Hx Substance Use: No Physical Exam Vital Signs Last Vital Signs Temp 36.5 C 01/16/25 07:01 Pulse 75 01/16/25 07:01 Resp 18 01/16/25 07:01 BP 105/68 01/16/25 07:01 Pulse Ox 100 01/16/25 07:01 O2 Del Method Room Air 01/16/25 07:01 O2 Flow Rate 0 01/15/25 20:26 Testing Laboratory Results 01/16/25 05:53 01/15/25 20:30 PT 10.3 Seconds (9.0-12.0) 01/15/25 20:30 INR 0.9 (0.9-1.1) 01/15/25 20:30 Blood Type O Negative 01/15/25 22:54 Antibody Screen POSITIVE A 01/15/25 22:54 Electrocardiogram Date: 01/15/25 paced Chest X-Ray Date: 01/15/25 Findings: + atelectasis and + cardiomegaly Echocardiogram per patient, she had her regular visit with cardiology last month and was told her function is good (60% EF) - says she does not have "spells" as an adult and both sides of her heart have been OK
[2025-01-16] MEDS ORDERED: KETOROLAC 30 MG/ML VIAL IV PRN (07:55)
[2025-01-16] MEDS ORDERED: PROMETHAZINE HCL 6.25 MG in SODIUM CHLORIDE 0.9% 50 ML IV PRN (07:55)
[2025-01-16] MEDS ORDERED: HYDROmorphone INJ 1 MG/ML SYRINGE IV PRN (07:55)
[2025-01-16] MEDS ORDERED: ATROPINE SULFATE 0.1 MG/ML 10ML SYR IV PRN (07:55)
[2025-01-16] MEDS ORDERED: PHENYLEPHRINE 100MCG/ML 5ML SYR IV PRN (07:55)
[2025-01-16] MEDS ORDERED: ceFAZolin 330 MG/ML 1 GM VIAL ONE (08:12)
[2025-01-16] MEDS: ceFAZolin 2000MG 2,000 MG/15 ML SYR IV ONE (08:15)
[2025-01-16] MEDS: TRANEXAMIC ACID 100 MG/ML 10 ML VIAL IV ONE (08:15)
[2025-01-16] MEDS ORDERED: PHENYLEPHRINE HCL 10 MG/ML VIAL ONE (08:22)
[2025-01-16 10:05] LABS: Estimated Average Glucose 103 mg/dl; Hemoglobin A1C 5.2 % (4.5-5.6)
--- NOTE | 2025-01-16 10:29 | Electrocardiogram Report ---
Test Reason : Blood Pressure : */* mmHG Vent. Rate : 123 BPM Atrial Rate : 123 BPM P-R Int : 104 ms QRS Dur : 130 ms QT Int : 124 ms P-R-T Axes : * -71 0 degrees QTcB Int : 177 ms AV sequential or dual chamber electronic pacemaker Left axis deviation Non-specific intra-ventricular conduction block Abnormal ECG No previous ECGs available Confirmed by Raj Ford ([id number]) on 01/16/2025 10:29:22 AM Referred By: REFERRED SELF Confirmed By: Raj Ford
[2025-01-16] MEDS: BUPIVACAINE/EPINEPHRINE 0.5% MPF 1:200,000 30 ML VIAL ONE (11:11)
[2025-01-16] MEDS: LIDOCAINE 1% LOCAL 20 ML VIAL ONE (11:12)
--- NOTE | 2025-01-16 11:44 | Operative Report ---
Post Operative Report Pre & Post Diagnosis Operation Date: 01/16/25 07:30 Pre-Op Diagnosis: Left tibial fracture Post-Op Diagnosis: Left tibial shaft fracture I identified the patient and participated in the time-out.: Yes Procedure Operation Date: 01/16/25 07:30 Actual Procedures p Intramedullary Nail Tibia(Left) - Aniceto Platt MD Surgeon Aniceto Platt MD Psychologist [employer] Low Han DO Estimated Blood Loss 25 Findings Consistent with Post-Op Diagnosis Fluids See anesthesia report Specimens None Drains None Anesthesia Type General Complications None Disposition Disposition: Recovery Room Indications The patient suffered a twisting injury to her left leg yesterday when she had a misstep getting out of her truck. She presented to the emergency department here was diagnosed with a distal one third to middle third tibial shaft fracture with an associated proximal one third fibular fracture with displacement. Given the degree of fracture displacement it was felt that an open reduction with internal fixation of the fracture of the tibia was the best indication for treatment. We did discuss nonoperative intervention including close reduction and splinting or casting. Patient was agreeable to proceed with operative intervention. Description of Procedure The patient was diagnosed with a distal one third to medial one third tibial shaft fracture with an associated proximal one third fibular shaft fracture. She was indicated for surgery given the degree of fracture displacement, soft tissue injury likely surrounding the fracture. Dr. Platt had a discussion regarding informed consent for the procedure of open reduction internal fixation of the tibial shaft and when she discussed the risks, benefits, and alternatives to surgery including but not limited to pain, infection, blood loss, nerve or blood vessel damage, hardware failure, need for additional procedures, malunion, nonunion. The patient expressed understanding and consent was obtained. The patient was brought to the operative suite where she underwent general anes thesia per the anesthesia providers. She was positioned supine, all bony prominences were well-padded, head and neck position by anesthesia. A tourniquet was placed high on the left thigh for potential use. The left lower extremity was cleansed with Hibiclens scrub brush. Following this the left lower extremity was prepped from the thigh to the toes with ChloraPrep. The prep was allowed to dry for a minimum of 3 minutes. The left lower extremity was then draped in the usual sterile fashion. A multidisciplinary surgical timeout was performed in which we identified the patient, date of , operative site, perioperative antibiotics, and that the correct operative extremity was marked and draped. Once all were in agreement we proceeded with incision. We started at the suprapatellar approach for a tibial nail the midline of the quadriceps was marked from the proximal pole of the patella to approximately 5 cm proximal. Incision was made with a 10 blade this was dissected down to the level of the quadriceps tendon utilizing Metzenbaum scissors and electrocautery for hemostasis. The quadriceps tendon was identified within the incision, and the midportion of the tendon was then incised longitudinally from the proximal pole of the patella approximately 5 cm proximal using electrocautery. At this point the blunt suprapatellar tibial nail guide sleeve was inserted down onto the intended proximal tibia starting point. A guidewire was introduced and utilizing biplanar fluoroscopic imaging correct starting point was identified the guide wire was advanced to an appropriate depth. At this point an opening reamer for a Synthes tibial nail was introduced through the suprapatellar guide sleeve this was verified to be on bone and off of cartilage using biplanar fluoroscopy. Opening reaming was undertaken to a depth of approximately 6 cm into the proximal tibial canal. At this point the guide sleeve was maintained in place the intial guidewire and reamer were removed and a long slightly bent, ball-tipped guidewire was introduced. The guidewire was advanced to the level of the physeal scar utilizing biplanar fluoroscopic guidance to ensure appropriate placement and provisional manual fracture reduction. Once the guidewire was in a acceptable position distally at the level of the physeal scar and centered from an anterior-posterior as well as the medial-lateral aspect, the decision was made to open the fracture site for further reduction. About 1 cm posterior to the anteromedial tibial crest a approximately 7 cm incision was undertaken. Subcutaneous tissues were dissected utilizing Metzenbaum scissors. The saphenous nerve and vein were protected and retracted posteriorly. We started with placing a large lobster claw reduction clamp distal to the fracture site as we had preoperatively identified a split going from the fracture into the posterior malleolus which was nondisplaced. We then reduced the fracture site and clamped this in place with another lobster-claw. Fracture reduction was again verified with biplanar fluoroscopy. At this time we proceeded with tibial canal reaming starting with an 8.5 mm reamer, we felt we needed slightly more distal reaming and we replaced the bent tipped ball-tipped guidewire with a straight tipped guidewire. We then repeated reaming with the 8.5mm reamer, followed by an 9.5 mm reamer, 10 mm reamer, and 10.5 mm reamer. A 9 x 300 mm Synthes tibial nail was then advanced into the tibial canal and seated distally at the level of the physeal scar. With placement of the nail the fracture did have some small amount of distraction. We then proceeded with placement of 3 distal locking screws, 2 from medial to lateral and 2 from anterior to posterior utilizing perfect rampart technique an small stab incisions. We did bluntly dissect the incisions with a hemostat and verified the drill was directly in contact with bone. Once the distal locking screws were in place, we removed the lobster claw reduction clamps. We then back slapped the nail and utilizing biplanar fluoroscopy verified that the distracted fracture site had closed down. Fracture was acceptably reduced. We then placed 2 proximal locking screws medially utilizing the #1 static locking hole and the dynamic locking hole. 10 mm endcap. We then verified acceptable fracture alignment as well as hardware placement utilizing biplanar fluoroscopy. Wounds were then copiously irrigated with normal saline hemostasis was ensured. Wounds were closed in layered fashion the distal wounds were closed with 2-0 Vicryl followed with stainless steel edu, the medial incision used for open reduction was also closed in layered fashion using 2-0 Vicryl subcutaneously and edu. Proximal locking screw incisions were also closed with 2-0 Vicryl and edu. Quadriceps tendon was closed in [id number] interrupted fashion using 0 Vicryl, subcutaneous tissues were approximated utilizing #1 Vicryl, subcuticular closure was pe rformed with 2-0 Vicryl and skin was closed with edu. Local anesthetic 1% lidocaine and half percent Marcaine were injected in the incisions. Dressing was applied with Xeroform, 4 x 4's, ABD pads, and Webril. A 6 inch Alexander was then overwrapped from the toes to the thigh. The patient tolerated the procedure well there were no immediate complications the foot was warm and well-perfused at the end of the case. Patient was taken to the recovery room in stable condition. The patient will be toe-touch weightbearing on the left lower extremity. Dressings are to be maintained clean dry and intact until dressing change. Lovenox for DVT prophylaxis. Summary of implants used: Synthes tibial nail advanced 9 mm x 300 mm. Distal locking screw 5 mm x 30 mm, 5 mm x 34 mm, 5 mm x 28 mm. Proximal locking screw was 5 mm x 32 mm, 5 mm x 30 mm. A 10 mm end cap for tibial nail was also utilized. A locking screw 5 mm x 38 mm was also utilized however was incorrect length and was wasted. I attest to the content of the Intraoperative Record and any orders documented therein. Any exceptions are noted below.
[2025-01-16] MEDS ORDERED: METOCLOPRAMIDE HCL INJ 5 MG/ML 2 ML VIAL IV PRN (12:07)
[2025-01-16] MEDS ORDERED: diphenhydrAMINE Capsule 25 MG CAP PO PRN (12:07)
[2025-01-16] MEDS ORDERED: ALUMINUM/MAGNESIUM SUSP 30 ML UDC PO PRN (12:07)
[2025-01-16] MEDS ORDERED: bisacodyL 10 MG SUPP PR PRN (12:07)
[2025-01-16] MEDS ORDERED: MAGNESIUM HYDROXIDE SUSP 30 ML UDC PO PRN (12:07)
[2025-01-16] MEDS ORDERED: NALOXONE HCL 0.4 MG/1 ML VIAL/CARP IV PRN (12:07)
--- NOTE | 2025-01-16 12:12 | Anesthesiology Progress Note ---
Date of Service January 16, 2025 Anesthesia Post Procedure Vital Signs Vital Signs: Temp Pulse Pulse Resp BP BP Pulse Ox 01/16/25 11:55 61 17 97/50 L 93 01/16/25 11:50 37.5 C 68 17 110/61 95 01/16/25 11:40 66 14 97/52 L 94 01/16/25 11:30 36.1 C L 66 16 111/57 L 98 01/16/25 11:22 36.1 C L 75 12 133/68 98 01/16/25 07:01 36.5 C 75 18 105/68 100 01/16/25 01:10 36.7 C 96 H 16 119/70 96 01/16/25 00:05 36.7 C 60 17 118/60 98 01/15/25 23:15 36.6 C 60 16 119/70 96 01/15/25 23:02 36.8 C 60 22 118/60 95 01/15/25 22:00 36.7 C 60 16 107/66 96 01/15/25 21:15 36.7 C 60 14 116/73 97 01/15/25 21:00 60 16 124/70 98 01/15/25 20:50 60 14 146/86 H 93 01/15/25 20:40 60 12 149/88 H 99 01/15/25 20:37 62 01/15/25 20:33 60 18 142/77 H 99 01/15/25 20:26 60 18 100 01/15/25 20:26 100 01/15/25 20:26 36.6 C 60 18 145/83 H 100 01/15/25 20:26 36.6 C 60 18 145/83 H 100 01/15/25 20:26 36.6 C 60 18 145/83 H 100 O2 Del Method O2 Flow Rate 01/16/25 11:55 Room Air 0 01/16/25 11:50 Room Air 0 01/16/25 11:40 Room Air 0 01/16/25 11:30 Oxymask 4 01/16/25 11:22 Oxymask 4 01/16/25 07:01 Room Air 01/16/25 01:10 Room Air 01/16/25 00:05 Room Air 01/15/25 23:15 Room Air 01/15/25 23:02 Room Air 01/15/25 22:00 Room Air 01/15/25 21:15 Room Air 01/15/25 21:00 Room Air 01/15/25 20:50 Room Air 01/15/25 20:40 Room Air 01/15/25 20:37 01/15/25 20:33 Room Air 01/15/25 20:26 Room Air 01/15/25 20:26 Room Air 01/15/25 20:26 Room Air 01/15/25 20:26 Room Air 01/15/25 20:26 Room Air 0 Pain Intensity Left Lower Leg: Pain Intensity: 6 Transfer of Care Handoff Completed per policy Notes Mental Status: alert / awake / arousable Patient Amnestic to Procedure: Yes Nausea / Vomiting: adequately controlled Pain: adequately controlled Airway Patency, RR, SpO2: stable & adequate BP & HR: stable & adequate Hydration State: stable & adequate Anesthetic Complications: no major complications apparent
--- NOTE | 2025-01-16 13:56 | Operative Report ---
Post Operative Report Pre & Post Diagnosis Operation Date: 01/16/25 07:30 Pre-Op Diagnosis: Left tibial fracture Post-Op Diagnosis: Left tibial fracture I identified the patient and participated in the time-out.: Yes Procedure Operation Date: 01/16/25 07:30 Actual Procedures p Intramedullary Nail Tibia(Left) - Aniceto Platt MD Surgeon Aniceto Platt MD Film Sorter Low Han DO Estimated Blood Loss 25 Findings Consistent with Post-Op Diagnosis Specimens None Description of Procedure The patient was brought to the operative suite where she underwent anesthesia. The left lower extremities prepped and draped in the usual sterile fashion. A surgical timeout was performed. The patient underwent a left tibial open reduction internal fixation with intramedullary nail. Please see Dr. Platt's operative report for full details. I was present and assisted with patient positioning, limb positioning, surgical approach, hardware placement, wound closure, postoperative dressing placement. Patient was awakened and taken to the recovery room in satisfactory condition. I attest to the content of the Intraoperative Record and any orders documented therein. Any exceptions are noted below.
--- NOTE | 2025-01-16 14:29 | Hospitalist Progress Note ---
Date of Service January 16, 2025 Assessment & Plan (1) Left tibial fracture: Plan: 44-year-old lady with PMH of chronic CHF [EF 60%, TTE 2024 per pt), ICD, HTN, tetralogy of Fallot status post surgery, AR status post aortic root/bioprosthetic AVR, hypothyroidism who is a resident of [place] and visiting the area fell off of her truck while unloading packages and landed on her left leg. She was noted to have left lower extremity fracture at present ation. She is being managed for the following: Traumatic left tibial/fibula fracture secondary to fall Admitting imaging reviewed. Orthopedics evaluated, status post surgical repair 01/16. Continue with SCDs, chemo DVT prophylaxis once bleeding risks deemed minimal per surgery. c/w pain mx, bowel regimen. PT/OT. Other chronic medical conditions: Continue with/resume home meds as and when able. chronic CHF (EF 60%, TTE 2024 as per patient), history ICD, patient euvolemic, stable heart disease after recent follow-up with [facility] casing cooker last month as per patient. hypertension, BP on the lower side tetralogy of Fallot status post surgery AR status post aortic root/bioprosthetic AVR hypothyroidism, pt states she takes 112 mcg levothyroxine at home. Hyperglycemia ruled out DM, a1c 5.2 DVT prophylaxis. SCDs Full code Text document was generated using [employer] voice recognition software. It may contain grammatical or spelling errors. Kindly contact undersigned for clarification of any documentation item in question. Admission and Anticipated Discharge Date Admission Date: January 15, 2025 Subjective Patient was seen and examined at bedside. Patient was lying in bed, on room air, NAD, resting comfortably. Patient is a status post LLE orthopedic repair. Patient reports pain fairly under control with pain medications. Patient denies febrile illness or flulike illness in the recent past, patient reports moving bowels okay. Physical Exam Physical Exam: GENERAL: Comfortable, pleasant, no respiratory distress SKIN: Normal color, warm HEENT: [place] palpebral conjunctivae, no ptosis, moist buccal mucosa NECK : Supple, no tenderness CHEST : CTA, no tenderness HEART : RRR, systolic murmur ABDOMEN: no distention, nontender EXTREMITIES : LLE dressing c/d/i. Palpable pulses/intact sensation. NEUROLOGIC : Coherent, no facial asymmetry, no other gross focality Results & Data Results & Data Vital Signs (Past 12 Hours) Vital Signs Temp Pulse Pulse Resp BP Pulse Ox O2 Del Method 01/16/25 14:17 36.6 C 60 18 100/62 96 Room Air 01/16/25 12:55 37.0 C 61 16 113/63 100 Room Air 01/16/25 12:18 36.9 C 65 16 103/63 95 Room Air 01/16/25 11:55 61 17 97/50 L 93 Room Air 01/16/25 11:50 37.5 C 68 17 110/61 95 Room Air 01/16/25 11:40 66 14 97/52 L 94 Room Air 01/16/25 11:30 36.1 C L 66 16 111/57 L 98 Oxymask 01/16/25 11:22 36.1 C L 75 12 133/68 98 Oxymask 01/16/25 07:01 36.5 C 75 18 105/68 100 Room Air O2 Flow Rate 01/16/25 14:17 01/16/25 12:55 01/16/25 12:18 01/16/25 11:55 0 01/16/25 11:50 0 01/16/25 11:40 0 01/16/25 11:30 4 01/16/25 11:22 4 01/16/25 07:01 (1) Left tibial fracture Encounter type: initial encounter Fracture alignment: displaced Fracture morphology: spiral Fracture type: closed Tibia location: shaft Qualified Code(s): S82.242A - Displaced spiral fracture of shaft of left tibia, initial encounter for closed fracture
--- NOTE | 2025-01-16 15:28 | Orthopedic Progress Note ---
Date of Service January 16, 2025 Assessment & Plan (1) Left tibial fracture: Plan: Stable postop. Continue elevation icing. Pain control. Lovenox for DVT prophylaxis beginning in the morning. A routine course of postop IV antibiotics. She will be toe-touch weightbearing. Particularly in light of the oblique fracture configuration but also because of the extension of the nondisplaced fracture into the posterior part of the ankle joint. Admission and Anticipated Discharge Date Admission Date: January 15, 2025 Leticia Fowler reports no significant problems postoperatively. Her pain is well- controlled. She is not having any tingling or numbness. Physical Exam Physical Exam: Dressing is clean and dry. She has 5 out of 5 ankle and toe plantarflexion dorsiflexion and eversion strength. DP pulse is trace palpable. PT pulse is not palpable but is strongly dopplerable. Her sensation is intact throughout her foot. Results & Data Vital Signs (Past 12 Hours) Vital Signs Temp Pulse Pulse Resp BP Pulse Ox O2 Del Method 01/16/25 14:17 36.6 C 60 18 100/62 96 Room Air 01/16/25 12:55 37.0 C 61 16 113/63 100 Room Air 01/16/25 12:18 36.9 C 65 16 103/63 95 Room Air 01/16/25 11:55 61 17 97/50 L 93 Room Air 01/16/25 11:50 37.5 C 68 17 110/61 95 Room Air 01/16/25 11:40 66 14 97/52 L 94 Room Air 01/16/25 11:30 36.1 C L 66 16 111/57 L 98 Oxymask 01/16/25 11:22 36.1 C L 75 12 133/68 98 Oxymask 01/16/25 07:01 36.5 C 75 18 105/68 100 Room Air O2 Flow Rate 01/16/25 14:17 01/16/25 12:55 01/16/25 12:18 01/16/25 11:55 0 01/16/25 11:50 0 01/16/25 11:40 0 01/16/25 11:30 4 01/16/25 11:22 4 01/16/25 07:01 (1) Left tibial fracture Encounter type: initial encounter Fracture alignment: displaced Fracture morphology: spiral Fracture type: closed Tibia location: shaft Qualified Code(s): S82.242A - Displaced spiral fracture of shaft of left tibia, initial encounter for closed fracture
[2025-01-16] MEDS: ceFAZolin 2000MG 2,000 MG/15 ML SYR IV SCH (17:15)
[2025-01-16] MEDS: TRANEXAMIC ACID / 0.7% NACL 1,000 MG/100 ML BAG IV SCH (17:27)
[2025-01-16] MEDS: KETOROLAC 30 MG/ML VIAL IV PRN (18:07)
[2025-01-16] MEDS: ONDANSETRON INJ 2 MG/ML 2 ML VIAL IV PRN (18:07)
[2025-01-16 20:18] VITALS: RESP 16
[2025-01-16] MEDS: SENNA 8.6 MG TAB PO SCH (21:44)
[2025-01-16] MEDS: DOCUSATE SODIUM 100 MG CAP PO SCH (21:44)
[2025-01-16] MEDS: METOPROLOL SUCC 25MG EXT REL TAB PO SCH (21:47)
[2025-01-17] MEDS: LEVOTHYROXINE SODIUM 112 MCG TABLET PO SCH (05:26)
[2025-01-17 06:24] LABS: Hematocrit (blood only) 30.9 % (37.0-47.0); Mean Corpuscular Hgb Conc 32.4 g/dL (32.0-36.0); Mean Corpuscular Volume 89.6 fL (80.0-100.0); Mean Platelet Volume 9.9 fL (9.4-12.4); Platelet Count 190 K/uL (130-400); RDW Coefficient of Variation 13.4 % (11.5-14.5); RDW Standard Deviation 43.9 fL (36.4-46.3); Red Blood Count 3.45 M/uL (4.20-5.40); White Blood Count 9.66 K/ul (4.8-10.8)
[2025-01-17 06:44] LABS: BUN Creatinine Ratio 15.5 (10-20); Calcium 8.6 mg/dl (8.6-10.3); Creatinine Clr Calc Pharmacy 109.9 ml/min; Magnesium 1.8 mg/dl (1.7-2.4); Phosphorus 3.2 mg/dl (2.5-4.9); Potassium 3.9 mmol/L (3.5-5.1)
[2025-01-17] MEDS: ENOXAPARIN INJ 30 MG/0.3 ML SYR SQ SCH (07:28)
[2025-01-17] MEDS: MULTIVITAMIN TAB PO SCH (07:29)
--- NOTE | 2025-01-17 08:12 | Fluoroscopy Report ---
FL tibia/fibula LT 2V CLINICAL HISTORY: LT TIBIAL NAIL COMPARISON STUDY: 01/15/2025 FLUOROSCOPY TIME: 239 seconds FLUOROSCOPY IMAGES: 8 EXPOSURE DOSE: 10.7 mGy FINDINGS: Interval tibial nail is present with near anatomic alignment at the tibia and fibula fractu res. IMPRESSION: Near-anatomic alignment. ACT 112: Negative or not required by law. Electronically signed by: Stephen Oreilly M.D. 01/17/2025 8:11 AM
[2025-01-17] MEDS: traMADol HCL 50 MG TABLET PO PRN (08:34)
--- NOTE | 2025-01-17 11:24 | Orthopedic Progress Note ---
Date of Service January 17, 2025 Assessment & Plan (1) Left tibial fracture: Plan: Postop day 1 status post left tibial IM nail with Dr. Platt 01/16 Patient is overall doing well. Continue with PT/OT. She is toe-touch weightbearing with a walker or crutches on her operative extremity. DVT prophylaxis and pain control per medicine. She can shower POD 4, redress with gauze and medical tape of tegaderm. She is 3 hours away from here near [place] and can follow-up with an orthopedist closer to home. We will continue to follow while she is in the hospital. Admission and Anticipated Discharge Date Admission Date: January 15, 2025 Subjective Patient was seen and examined bedside with Dr. Menjivar. She says she is over all doing well. Pain is well-controlled currently. She just was working with physical therapy and says it felt good to get up and move around a little bit. She has more of an appetite this morning. Physical Exam Physical Exam: Left lower extremity: Dressing was left in place. She was able to wiggle her toes. Skin distally was warm and pink. 1+ PT pulse present. She was able to pump her ankles Results & Data Vital Signs (Past 12 Hours) Vital Signs Temp Pulse Resp BP Pulse Ox O2 Del Method 01/17/25 07:37 36.4 C L 60 16 116/68 99 Room Air 01/17/25 03:54 36.6 C 60 16 102/61 98 Room Air 01/17/25 00:13 36.7 C 60 16 120/75 98 Room Air Laboratory Results 01/17/25 01/15/25 Range/Units 06:01 22:54 WBC 9.66 (4.8-10.8) K/ul RBC 3.45 L (4.20-5.40) M/uL Hgb 10.0 L (12.0-16.0) g/dl Hct 30.9 L (37.0-47.0) % MCV 89.6 (80.0-100.0) fL MCH 29.0 (25.0-34.0) pg MCHC 32.4 (32.0-36.0) g/dL RDW Std Deviation 43.9 (36.4-46.3) fL RDW Coeff of Linda 13.4 (11.5-14.5) % Plt Count 190 (130-400) K/uL MPV 9.9 (9.4-12.4) fL Sodium 137 (136-145) mmol/L Potassium 3.9 (3.5-5.1) mmol/L Chloride 107 (98-107) mmol/L Carbon Dioxide 28 (21-32) mmol/L Anion Gap 2 L (3-11) BUN 9 (6-23) mg/dl Creatinine 0.58 L (0.6-1.2) mg/dl Est Cr Clr Drug Dosing 109.9 ml/min eGFR 115.80 BUN/Creatinine Ratio 15.5 (10-20) Glucose 91 (70-99(Fasting)) mg/dl Calcium 8.6 (8.6-10.3) mg/dl Phosphorus 3.2 (2.5-4.9) mg/dl Magnesium 1.8 (1.7-2.4) mg/dl 25-OH Vitamin D Total 36.8 (30-100) ng/ml Antibody ID Comment (1) Left tibial fracture Encounter type: initial encounter Fracture alignment: displaced Fracture morphology: spiral Fracture type: closed Tibia location: shaft Qualified Co de(s): S82.242A - Displaced spiral fracture of shaft of left tibia, initial encounter for closed fracture
--- NOTE | 2025-01-17 16:17 | Hospitalist Progress Note ---
Date of Service January 17, 2025 Assessment & Plan (1) Left tibial fracture: Plan: 44-year-old lady with PMH of chronic CHF [EF 60%, TTE 2024 per pt), ICD, HTN, tetralogy of Fallot status post surgery, AR status post aortic root/bioprosthetic AVR, hypothyroidism who is a resident of [place] and visiting the area fell off of her truck while unloading packages and landed on her left leg. She was noted to have left lower extremity fracture at present ation. She is being managed for the following: Traumatic left tibial/fibula fracture secondary to fall Admitting imaging reviewed. Orthopedics evaluated, status post surgical repair 01/16. Continue with lovenox for dvt px c/w pain mx, bowel regimen. PT/OT. f/u w/ ortho on dc. Other chronic medical conditions: Continue with/resume home meds as and when able. chronic CHF (EF 60%, TTE 2024 as per patient), history ICD, patient euvolemic, stable heart disease after recent follow-up with [facility] engineering lab technician last month as per patient. hypertension, BP on the lower side tetralogy of Fallot status post surgery AR status post aortic root/bioprosthetic AVR hypothyroidism, pt states she takes 112 mcg levothyroxine at home. Hyperglycemia ruled out DM, a1c 5.2 DVT prophylaxis. lovenox Full code Dispo when cleared per ortho Text document was generated using [employer] voice recognition software. It may contain grammatical or spelling errors. Kindly contact undersigned for clarification of any documentation item in question. Admission and Anticipated Discharge Date Admission Date: January 15, 2025 Subjective Patient was seen and examined at bedside. Patient was lying in bed, on room air, NAD, resting comfortably. Patient is a status post LLE orthopedic repair. Patient reports pain fairly under control with pain medications. Pt reports appetite improving. Patient denies febrile illness or flulike illness in the recent past, pt has not moved bowel after sx yet. Physical Exam Physical Exam: GENERAL: Comfortable, pleasant, no respiratory distress SKIN: Normal color, warm HEENT: [place] palpebral conjunctivae, no ptosis, moist buccal mucosa NECK : Supple, no tenderness CHEST : CTA, no tenderness HEART : RRR, systolic murmur ABDOMEN: no distention, nontender EXTREMITIES : LLE dressing c/d/i. Palpable pulses/intact sensation. NEUROLOGIC : Coherent, no facial asymmetry, no other gross focality Results & Data Results & Data Vital Signs (Past 12 Hours) Vital Signs Temp Pulse Resp BP BP Pulse Ox O2 Del Method 01/17/25 13:50 36.6 C 60 16 102/57 L 100 Room Air 01/17/25 07:37 36.4 C L 60 16 116/68 99 Room Air (1) Left tibial fracture Encounter type: initial encounter Fracture alignment: displaced Fracture morphology: spiral Fracture type: closed Tibia location: shaft Qualified Code(s): S82.242A - Displaced spiral fracture of shaft of left tibia, initial encounter for closed fracture
[2025-01-17] MEDS: ASPIRIN 81 MG ECTAB PO SCH (19:51)
[2025-01-17] MEDS: SPIRONOLACTONE 100 MG TAB PO SCH (19:52)
[2025-01-17] MEDS: ACETAMINOPHEN 325 MG TAB PO PRN (19:53)
[2025-01-17] MEDS: KETOROLAC TROMETHAMINE 15 MG/ML VIAL IV PRN (22:57)
[2025-01-17] MEDS: MoRPHine SULFATE 4 MG/ML 1 ML CARP\\VIAL IV PRN (23:35)
[2025-01-18 07:19] LABS: Hematocrit (blood only) 32.4 % (37.0-47.0); Hemoglobin 10.4 g/dl (12.0-16.0); Mean Corpuscular Hemoglobin 29.3 pg (25.0-34.0); Mean Corpuscular Hgb Conc 32.1 g/dL (32.0-36.0); Mean Corpuscular Volume 91.3 fL (80.0-100.0); Mean Platelet Volume 9.8 fL (9.4-12.4); Platelet Count 188 K/uL (130-400); RDW Coefficient of Variation 13.4 % (11.5-14.5); RDW Standard Deviation 44.6 fL (36.4-46.3); Red Blood Count 3.55 M/uL (4.20-5.40); White Blood Count 6.22 K/ul (4.8-10.8)
[2025-01-18 07:31] LABS: BUN Creatinine Ratio 14.8 (10-20); Calcium 8.5 mg/dl (8.6-10.3); Creatinine Clr Calc Pharmacy 118.1 ml/min; Potassium 4.3 mmol/L (3.5-5.1)
[2025-01-18 07:50] VITALS: PULSE 60; TEMP 98.2; O2SAT 100
--- NOTE | 2025-01-18 09:09 | Orthopedic Progress Note ---
Date of Service January 18, 2025 Assessment & Plan (1) Left tibial fracture: Plan: Doing well. Stable postop. She is suitable for discharge home. She will follow-up with her local orthopedic doctor 2 weeks postop. She is welcome to contact me or come back to see me at any time. Things to watch out for include severe pain swelling fevers drainage tingling numbness. If any of this happens she needs to call my office go see her doctor or go to the emergency room. Medication butler she will be on her regular meds. Stool softener. Lovenox 30 mg SQ twice daily x 2 weeks. She will need to get a CBC checked weekly while she is on Lovenox. No NSAIDs. Tylenol. Tramadol and oxycodone for pain. Elevate ice. Toe-touch weight with foot flat. Ankle and knee range of motion. Physical therapy. She can obtain images and reports to take to her doctor. She may shower postop day 4 Admission and Anticipated Discharge Date Admission Date: January 15, 2025 Subjective Had some pain last evening. Was given Toradol. Eager to go home. Otherwise doing well. Physical Exam Physical Exam: DP is trace. Sensation intact she can flex and extend her toes and ankle with 5- out of 5 strength. She is able to do a leg lift. Dressing is changed. Some bruising over the mid upper ying. Incisions are healing well there is no blistering or skin breakdown. There is no evidence of infection or erythema. Calf is soft and supple. She has limited knee and ankle range of motion Results & Data Vital Signs (Past 12 Hours) Vital Signs Temp Pulse Resp BP Pulse Ox O2 Del Method 01/18/25 07:49 36.8 C 60 16 100/67 100 Room Air Laboratory Results Laboratory Results WBC 6.22 K/ul (4.8-10.8) 01/18/25 06:44 RBC 3.55 M/uL (4.20-5.40) L 01/18/25 06:44 Hgb 10.4 g/dl (12.0-16.0) L 01/18/25 06:44 Hct 32.4 % (37.0-47.0) L 01/18/25 06:44 MCV 91.3 fL (80.0-100.0) 01/18/25 06:44 MCH 29.3 pg (25.0-34.0) 01/18/25 06:44 MCHC 32.1 g/dL (32.0-36.0) 01/18/25 06:44 RDW Std Deviation 44.6 fL (36.4-46.3) 01/18/25 06:44 RDW Coeff of Linda 13.4 % (11.5-14.5) 01/18/25 06:44 Plt Count 188 K/uL (130-400) 01/18/25 06:44 MPV 9.8 fL (9.4-12.4) 01/18/25 06:44 Immature Gran % (Auto) 0.3 % 01/16/25 05:53 Neut % (Auto) 76.3 % 01/16/25 05:53 Lymph % (Auto) 11.6 % 01/16/25 05:53 [place] % (Auto) 11.1 % 01/16/25 05:53 Eos % (Auto) 0.4 % 01/16/25 05:53 Baso % (Auto) 0.3 % 01/16/25 05:53 Neut # (Auto) 8.54 K/uL (1.40-6.50) H 01/16/25 05:53 Lymph # (Auto) 1.30 K/uL (1.20-3.40) 01/16/25 05:53 [place] # (Auto) 1.24 K/uL (0.11-0.59) H 01/16/25 05:53 Eos # (Auto) 0.05 K/uL (0.00-0.50) 01/16/25 05:53 Baso # (Auto) 0.03 K/uL (0.00-0.20) 01/16/25 05:53 Immature Gran # (Auto) 0.03 K/uL (0.01-0.20) 01/16/25 05:53 PT 10.3 Seconds (9.0-12.0) 01/15/25 20:30 INR 0.9 (0.9-1.1) 01/15/25 20:30 Sodium 137 mmol/L (136-145) 01/18/25 06:44 Potassium 4.3 mmol/L (3.5-5.1) 01/18/25 06:44 Chloride 105 mmol/L (98-107) 01/18/25 06:44 Carbon Dioxide 32 mmol/L (21-32) 01/18/25 06:44 Anion Gap 0 (3-11) L 01/18/25 06:44 BUN 8 mg/dl (6-23) 01/18/25 06:44 Creatinine 0.54 mg/dl (0.6-1.2) L 01/18/25 06:44 Est Cr Clr Drug Dosing 118.1 ml/min 01/18/25 06:44 eGFR 117.81 01/18/25 06:44 BUN/Creatinine Ratio 14.8 (10-20) 01/18/25 06:44 Glucose 86 mg/dl (70-99(Fasting)) 01/18/25 06:44 Estimat Average Glucose 103 mg/dl 01/15/25 20:30 Hemoglobin A1c 5.2 % (4.5-5.6) 01/15/25 20:30 Calcium 8.5 mg/dl (8.6-10.3) L 01/18/25 06:44 01/15/25 22:54 Impressions (1) Left tibial fracture Encounter type: initial encounter Fracture alignment: displaced Fracture morphology: spiral Fracture type: closed Tibia location: shaft Qualified Code(s): S82.242A - Displaced spiral fracture of shaft of left tibia, initial encounter for closed fracture
[2025-01-18 11:48] VITALS: BP 125/73
--- NOTE | 2025-01-18 11:50 | Discharge Summary ---
Date of Service January 18, 2025 Admission HPI Per Admitting Provider History obtained from patient, family, and records. Medical history significant for chronic CHF (EF 60%, TTE 2024 as per patient), history ICD, hypertension, tetralogy of Fallot status post surgery, AR status post aortic root/bioprosthetic AVR, hypothyroidism. Patient is a resident of [place] visiting family this weekend. She fell off her truck while unloading some packages. Patient landed on her left leg. Achy left ankle pain. No head trauma, no chest pain, no SOB. Medical History as above Surgical History : ICD, TOF repair, bioprosthetic AVR Family History : Hypertension Personal/Social history : Non-smoker, occasional EtOH intake, occupational therapist Admission Exam Per Admitting Provider GENERAL: Comfortable, pleasant, no respiratory distress SKIN: Normal color, warm HEENT: [place] palpebral conjunctivae, no ptosis, moist buccal mucosa NECK : Supple, no tenderness CHEST : CTA, no tenderness HEART : RRR, systolic murmur ABDOMEN: no distention, nontender EXTREMITIES : No LE swelling/tenderness, palpable pulses, LLE splint NEUROLOGIC : Coherent, no facial asymmetry, no other gross focality Principal Diagnosis Left tib/fib fracture Discharge Exam GENERAL: Comfortable, pleasant, no respiratory distress SKIN: Normal color, warm HEENT: [place] palpebral conjunctivae, no ptosis, moist buccal mucosa NECK : Supple, no tenderness CHEST : CTA, no tenderness HEART : RRR, systolic murmur ABDOMEN: no distention, nontender EXTREMITIES : LLE dressing c/d/i. Palpable pulses/intact sensation. NEUROLOGIC : Coherent, no facial asymmetry, no other gross focality Discharge Data Allergies Allergy/AdvReac Type Severity Reaction Status Date / Time No Known Allergies Allergy Unverified 01/15/25 21:13 Consultations 01/15/25 21:33 Consult Orthopedic Surgery Stat 01/15/25 22:49 ED Decision to Admit Stat Procedures Performed Operation Date: 01/16/25 07:30 Actual Procedures p Intramedullary Nail Tibia(Left) - Aniceto Platt MD Ordered Studies 01/15/25 22:20 CT ankle LT wo con Stat 01/16/25 07:15 FL tibia/fibula LT 2V Routine Hospital Course (1) Left tibial fracture: 44-year-old lady with PMH of chronic CHF [EF 60%, TTE 2024 per pt), ICD, HTN, tetralogy of Fallot status post surgery, AR status post aortic root/bioprosthetic AVR, hypothyroidism who is a resident of [place] and visiting the area fell off of her truck while unloading packages and landed on her left leg. She was noted to have left lower extremity fracture at presentation. She was managed for the following: Traumatic left tibial/fibula fracture secondary to fall Admitting imaging reviewed. Orthopedics evaluated, status post surgical repair 01/16. Continue with lovenox for dvt px, f/u w/ ortho in 2 weeks. c/w pain mx, bowel regimen. c/w PT on DC. f/u w/PCP upon dc. Other chronic medical conditions: Continue with/resume home meds as and when able. chronic CHF (EF 60%, TTE 2024 as per patient), history ICD, patient euvolemic, stable heart disease after recent follow-up with [facility] facility worker last month as per patient. hypertension, BP on the lower side tetralogy of Fallot status post surgery AR status post aortic root/bioprosthetic AVR hypothyroidism, pt states she takes 112 mcg levothyroxine at home. Hyperglycemia ruled out DM, a1c 5.2 DVT prophylaxis. lovenox Full code Dispo when cleared per ortho Patient is being discharged to home with family support and outpatient physical therapy with following instructions at the point of discharge: Follow-up with your primary care physician within a week time and likely you will need labs CBC/CMP/magnesium/phosphorus. Follow-up with your primary care physician within 1 week time upon discharge. Follow-up with orthopedics in 2 weeks time upon discharge. You will be discharged on Lovenox twice a day for 2 weeks, continue to follow-up with orthopedics for ongoing need/recommendation for Lovenox DVT prophylaxis. Take your medications as prescribed. Please make sure that you are able to get your medications today by calling your pharmacy before you leave the hospital so that your treatment continuity is not broken. Text document was generated using [employer] voice recognition software. It may contain grammatical or spelling errors. Kindly contact undersigned for clarification of any documentation item in question. Home Health Attestation I certify that this patient is under my care and that I, or a physicians assistant strength coach working with me, had a face to-face encounter that meets the home health [id number] encounter requirements with this patient. The encounter with the patient was in whole, or in part, for the following medical condition, which is the primary reason for home health care (list medical condition): I certify that, based on my findings, the following services are medically necessary home health services: My clinical findings support the need for the above services because: Further, I certify that my clinical findings support that this patient is homebound (i.e. absences from home require considerable and taxing effort and are for medical reasons or jew services or infrequently or of short duration when for other reasons) because: Certification for Home Health Services: Based on the above findings, I certify that this patient is confined to the home and needs intermittent senior care care, physical therapy and/or speech therapy or continues to need occupational therapy. The patient is under my care, and I have initiated the establishment of the plan of care. This patient will be followed by a physician who will periodically review the plan of care. Total Time Total Time Spent Total Time Spent (In Minutes): 35 Discharge Plan Discharge Items Patient Disposition: Home - Self-Care Reason For Visit: TIB FIB FX Discharge Diagnosis: Left tib/fib fracture Activity: Per Instructions section Weightbearing: Left toe touch Weightbearing Comment: with walker/crutches assistance; (foot flat) Non-emergency contact: Surgeon Call non-emergency contact if: you have any medication questions, your symptoms worsen, your pain is not controlled, your temperature is above 101, your wound has increased redness and your wound has increased drainage Follow-up/Referrals: Surgeon, close to home [Other] (in the next 10-14 days; you will need to call for an appointment.) Tanya Muniz, DO [Primary Care Provider] - (Please follow up within a week of discharge. Call for an appointment.) Diet: Regular Addtl Attending Provider Instructions: Follow-up with your primary care physician within a week time and likely you will need labs CBC/CMP/magnesium/phosphorus. Follow-up with your primary care physician within 1 week time upon discharge. Follow-up with orthopedics in 2 weeks time upon discharge. You will be discharged on Lovenox twice a day for 2 weeks, continue to follow-up with orthopedics for ongoing need/recommendation for Lovenox DVT prophylaxis. Take your medications as prescribed. Please make sure that you are able to get your medications today by calling your pharmacy before you leave the hospital so that your treatment continuity is not broken. Addtl Fumigator And Sterilizer Provider Instructions: Orthopedic discharge instructions: Toe-touch weightbearing with walker/crutches. You may have your foot flat on the ground. Range of motion to left knee, ankle and hip as tolerated. Start outpatient physical therapy - script provided at discharge. Continue Lovenox twice daily for 2-4 weeks after surgery. Stop at the direction of your orthopedist close to home. You may shower postop day 4, incisions can be redressed with gauze and medical tape or Tegaderms. Keep incisions covered until edu removed. Once showering, you may let soap and water run over incisions, pat incisions dry. Ice to left leg or knee as needed. 15-20 minutes every 2-3 hours as needed. Elevate left leg above your heart to relieve pain and swelling. Follow-up with an orthopedist closer to home, you may follow-up with us as needed. You will need to call for an appointment as soon as possible as you will need to have your edu removed in 10-[address] Platt's office - your "close to home" surgeon, or report to your local ED if you develop increased pain, swelling, numbness, tingling, drainage from your incision. Please call [phone] with any questions, concerns or medication refills until seen by your local orthopedist. Pending Studies at Discharge: No Stand-Alone Forms: [facility], Smoking Cessation Medications and DC Order Prescriptions: New oxycodone 5 mg Tablet 5 - 10 mg PO Q4H PRN (Reason: pain) Qty: 18 0RF Rx Instructions: 5mg for pain 1-5 10 mg for pain 6-10 do not take more than 6 tabs/day enoxaparin [Lovenox] 30 mg/0.3 mL Syringe 30 mg subcut Q12H 14 Days Qty: 8.4 1RF docusate sodium 100 mg Capsule 100 mg PO BID 14 Days Qty: 28 0RF Rx Instructions: take while on pain medication; over the counter acetaminophen [Tylenol Extra Strength] 500 mg tablet 1,000 mg PO Q8H 30 Days Qty: 180 0RF Continued aspirin 81 mg Tablet,Delayed Release (Dr/Ec) 81 mg PO HS levothyroxine [Synthroid] 125 mcg Tablet 125 mcg PO QAM spironolactone 100 mg Tablet 100 mg PO BID metoprolol succinate 25 mg Tablet Extended Release 24 Hr 25 mg PO HS Discharge Orders: Discharge Order (Routine); Ordered 01/18/25 Ordered By: Cecil Gee Admission Data Admit Date/Time: 01/15/25 23:00 Attending Provider: Cecil Gee Admit Provider: Jarad Sosa Primary Care Provider: Tanya Muniz Other Providers: Aniceto Platt; Jarad Sosa
== END 2025-01-18 12:50 | disposition home or self-care (01) | DRG 493 ==
LOC: ED 20:24 → 3N 23:00